=== PATIENT | male | born 1960 | race Caucasian/White ===

== ENCOUNTER → 2020-06-18 08:42 | Outpatient (CLI) | payer OTHER, SELFPAY ==
--- NOTE | 2020-06-18 08:49 | CDU_ITS ---
Reason For Study: Carotid stenosis Rt. Velocities/BP Lt. Velocities/BP Prox CCA 115.2/21.3 cm/sec. Prox CCA 122.9/24.3 cm/sec. Mid CCA 98.2/20 cm/sec. Mid CCA 91.9/18.8 cm/sec. Dist CCA 95.6/13.4 cm/sec. Dist CCA 108.3/18.8 cm/sec. Prox ICA 90.6/20.4 cm/sec. Prox ICA 85.1/29.8 cm/sec. Mid ICA 110.1/26.1 cm/sec. Mid ICA 97.4/31.1 cm/sec. Dist ICA 130.1/33.6 cm/sec. Dist ICA 91.2/27.4 cm/sec. Rt. ICA/CCA = 1.3. Lt. ICA/CCA = 0.9. Prox ECA 111.2/18.6 cm/sec. Prox ECA 96.2/10.2 cm/sec. Rt. Vert. 43.3/9 cm/sec. Lt. Vert. 67.9/20 cm/sec. Right Extracranial There is heterogeneous, smooth atherosclerotic plaque noted in the right common carotid artery. There is heterogeneous, irregular atherosclerotic plaque noted in the right internal carotid artery. There is heterogeneous, irregular atherosclerotic plaque noted in the right external carotid artery. Antegrade flow is noted in the right vertebral artery. Left Extracranial There is heterogeneous, smooth atherosclerotic plaque noted in the left common carotid artery. There is heterogeneous, irregular atherosclerotic plaque noted in the left internal carotid artery. The atherosclerotic plaque causes acoustic shadowing. There is intimal thickening but no significant atherosclerotic plaque noted in the left external carotid artery. Antegrade flow is noted in the left vertebral artery. Procedure Carotid Duplex [id number]. Exam performed in department. Interpretation Summary Mild calcific plaque with shadowing right common carotid carotid bulb and proximal internal carotid artery with 50 to 69% stenosis of the right internal carotid. <50% stenosis right external carotid Calcific plaque with shadowing left carotid bulb and proximal internal carotid artery with less than 50% stenosis of the internal carotid. <50% stenosis left externa carotid Patent and antegrade vertebrals bilaterally Ordering Physician: Shen Miguel Referring Physician: Shen Miguel Performed By: Korin Diego RVT
== END ==
PROVIDERS: PCP Student in an Organized Health Care Education/Training Program; Referring Provider Student in an Organized Health Care Education/Training Program; Visit Provider Student in an Organized Health Care Education/Training Program
DX: R09.89 Other specified symptoms and signs involving the circulatory and respiratory systems (principal)
CPT/HCPCS: 93880

== ENCOUNTER → 2021-01-05 | Outpatient (CLI) | payer OTHER, SELFPAY ==
[2020-07-08 14:59] VITALS: BMI 24.4
[2021-01-05 10:02] LABS: Hemoglobin 14.9 g/dL (13.0-16.5); Mean Corp Hgb Conc 32.4 g/dL (32-36); Mean Corpuscular Hgb 29.2 pg (27.0-32.0); Mean Corpuscular Volume 90.2 fL (80-94); Mean Platelet Vol. 9.4 fl (6.2-12.0); Platelet Count 336 K/mm3 (150-450); RBC Distribution Width CV 13.7 % (11.6-14.6)
[2021-01-05 10:32] LABS: Color, Urine Yellow (Yellow); Glucose, Dipstick Normal (Normal); Ketone-Dipstick Negative (Negative); Leukocyte Esterase-Dipstick Negative /ul (Negative); Nitrite-Dipstick Negative (Negative); Occult Blood-Urine 10 /ul (Negative); Protein-Dipstick Negative (Negative); Urine Bilirubin Dipstick Negative (Negative); Urine Clarity Clear (Clear); Urine Urobilinogen Normal (Normal)
== END | disposition home or self-care (01) ==
LOC: LABSPEC 01-07 13:00
PROVIDERS: PCP Student in an Organized Health Care Education/Training Program; Visit Provider Student in an Organized Health Care Education/Training Program
DX: I10 Essential (primary) hypertension (principal); Z13.6 Encounter for screening for cardiovascular disorders
CPT/HCPCS: 36415; 81002; 85027

== ENCOUNTER 2021-02-09 15:28 | Outpatient (RCR) | payer OTHER, SELFPAY ==
[2020-07-08 14:59] VITALS: BMI 24.4
[2021-02-09] MEDS: COVID-19 VACC, MRNA(PFIZER)/PF 30 MCG/0.3 ML SYRINGE IM (09:34)
[2021-03-02] MEDS: COVID-19 VACC, MRNA(PFIZER)/PF 30 MCG/0.3 ML SYRINGE IM (09:29)
== END 2021-05-04 23:59 ==
LOC: IMMUN 15:28
PROVIDERS: PCP Student in an Organized Health Care Education/Training Program; Visit Provider Family Medicine
DX: Z23 Encounter for immunization (principal)
CPT/HCPCS: 0001A; 0002A; 91300